=== PATIENT | female | born 1960 | race Caucasian/White ===

== ENCOUNTER → 2017-10-20 | Outpatient (CLI) | payer BC ==
--- NOTE | 2017-10-20 12:48 | CARD ---
MR#: [id number] Date of Study: 10/20/2017 Ordering Physician: ISABELLA ALCARAZ, Referring Physician: ISABELLA ALCARAZ, Tech: Sha Prabhakar APPROVED REPORT EXAM: Two-dimensional and M-mode echocardiogram with Doppler and color Doppler. Other Information Quality : GoodHR: 68bpm INDICATION Murmur 2D DIMENSIONS RVDd3.0 (2.9-3.5cm)Left Atrium(2D)3.6 (1.6-4.0cm) IVSd1.2 (0.7-1.1cm)Aortic Root(2D)2.9 (2.0-3.7cm) LVDd3.7 (3.9-5.9cm)LVOT Diameter1.7 (1.8-2.4cm) PWd1.8 (0.7-1.1cm)LVDs2.6 (2.5-4.0cm) FS (%) 28.9 %SV33.0 ml LVEF(%)56.4 (>50%) Aortic Valve AoV Peak Campos.184.8cm/sAoV VTI42.8cm AO Peak GR.13.7mmHgLVOT Peak Campos.161.1cm/s AO Mean GR.8mmHgAVA (VMAX)2.01cm2 AI P 1/2 [id number] Mitral Valve MV E Wxpgvpoi39.4cm/sMV E Peak Gr.84mmHg MV DECEL [id number] A Htrgukmx46.0cm/s E/A Ratio1.1 Pulmonary Valve PV Peak Deothsis078.5cm/s Tricuspid Valve TR P. Erecirij234yx/sTR Peak Gr.19mmHg Pulmonary Vein S1 Lasyggbh95.7cm/sD2 Pucmpokf26.8cm/s LEFT VENTRICLE The left ventricle is normal size. There is mild to moderate concentric left ventricular hypertrophy. The left ventricular systolic function is normal and the ejection fraction is within normal range. E F 55% There is normal LV segmental wall motion. The left ventricular diastolic function and filling i s normal for age. RIGHT VENTRICLE The right ventricle is normal size. The right ventricular systolic function is normal. ATRIA The left atrium size is normal. The right atrium size is normal. The interatrial septum is intact wit h no evidence for an atrial septal defect or patent foramen ovale as noted on 2-D or Doppler imaging. AORTIC VALVE The aortic valve is normal in structure and function. Doppler and Color Flow revealed mild aortic reg urgitation. There is no significant aortic valvular stenosis. There is no aortic valvular vegetation. MITRAL VALVE The mitral valve is thickened but opens well. The posterior mitral valve leaflet appears calcified. T here is no evidence of mitral valve prolapse. There is no mitral valve stenosis. Doppler and Color-fl ow revealed mild mitral regurgitation. TRICUSPID VALVE The tricuspid valve is normal in structure and function. Doppler and Color Flow revealed mild tricusp id regurgitation. There is no tricuspid valve prolapse or vegetation. There is no tricuspid valve tito nosis. PULMONIC VALVE Pulmonic valve was not visualised well. Doppler and Color Flow revealed trace pulmonic valvular regur gitation. There is no pulmonic valvular stenosis. GREAT VESSELS The aortic root is normal in size. The IVC is larger then normal in size and collapses >50% with insp iration. PERICARDIAL EFFUSION There is no pleural effusion. There is no evidence of significant pericardial effusion. Critical Notification Critical Value: No <Conclusion> The left ventricular systolic function is normal and the ejection fraction is within normal range. EF 55% There is normal LV segmental wall motion. Signed by : Isabella Alcaraz, Electronically Approved : 10/20/2017 12:48:08
== END | disposition home or self-care (01) ==
LOC: ECHO 09:31
PROVIDERS: ATTEND Internal Medicine Cardiovascular Disease
DX: I34.0 Nonrheumatic mitral (valve) insufficiency (principal); R01.1 Cardiac murmur, unspecified
CPT/HCPCS: 93306

== ENCOUNTER → 2021-08-14 | Outpatient (CLI) | payer OTHER ==
--- NOTE | 2021-08-14 17:37 | RAD ---
EXAM: Cervical spine, 2 views. HISTORY: Pain. COMPARISON: None. FINDINGS: 2 views of the cervical spine are obtained. There is mild multilevel endplate remodeling. T here is disc space narrowing predominantly at C5-C6. There is multilevel facet arthropathy. IMPRESSION: Multilevel degenerative change, described above. No acute osseous finding. Electronically signed by: Monalisa Lea MD (08/14/2021 5:35 PM) [facility]
--- NOTE | 2021-08-14 17:53 | RAD ---
EXAM: Lumbar spine, 2 views. HISTORY: Pain. COMPARISON: None. FINDINGS: 2 views of the lumbar spine are obtained. There is mild lumbar dextrocurvature. There is 5 mm grade 1 anterolisthesis of L4 on L5 and L5 on S1. There is degenerative endplate remodeling with d isc space narrowing and facet arthropathy predominantly at L5-S1. There is mild endplate remodeling a t the remainder of the lumbar and lower thoracic levels. IMPRESSION: 1. Degenerative change predominantly at L5-S1. 2. Grade 1 anterolisthesis of L4 and L5 and L5 on S1 and slight lumbar scoliosis. Electronically signed by: Monalisa Lea MD (08/14/2021 5:51 PM) [facility]
== END ==
LOC: RAD 09:52
PROVIDERS: ATTEND Family Medicine
DX: Z02.71 Encounter for disability determination (principal); M47.812 Spondylosis without myelopathy or radiculopathy, cervical region; M47.817 Spondylosis without myelopathy or radiculopathy, lumbosacral region; M48.02 Spinal stenosis, cervical region; M48.07 Spinal stenosis, lumbosacral region; M41.87 Other forms of scoliosis, lumbosacral region
CPT/HCPCS: 72040; 72100